=== PATIENT | female | born 1980 | race Caucasian/White ===

== ENCOUNTER 2016-03-29 16:31 | Inpatient (IN) | payer OTHER ==
[2016-03-29 16:46] VITALS: BMI 25.7
--- NOTE | 2016-03-29 17:59 | HP ---
CIWA Score - CIWA Score Nausea/Vomitin Muscle Tremors: 4-Moderate,w/Arms Extend Anxiety: 4-Mod. Anxious/Guarded Agitation: 4-Moderately Restless Paroxysmal Sweats: 3 Orientation: 0-Oriented Tacttile Disturbances: 2-Mild Itch/Numbness/Burn Auditory Disturbances: 0-None Visual Disturbances: 0-None Headache: 0-None Present CIWA-Ar Total Score: 20 Admission ROS S - HPI Chief Complaint: WITHDRAWAL SX. Allergies/Adverse Reactions: Allergies Allergy/AdvReac Type Severity Reaction Status Date / Time shellfish derived Allergy Verified 03/29/16 17:49 History of Present Illness: 35 Y/O WOMAN WITH A LONG HX. OF DRUG & ALCOHOL DEPENDENCE IS ADMITTED FOR DETOX.PT. HAS BEEN IN PREVIOUS DETOX,DENIES SIGNIFICANT SOBRIETY.SHE'S IN OTP 110MG OF METHADONE. Exam Limitations: No Limitations - Ebola screening Have you traveled outside of the country in the last 21 days: No Have you had contact with anyone from an Ebola affected area: No Have you been sick,other than usual withdrawal symptoms: No Do you have a fever: No - Review of Systems Constitutional: Diaphoresis EENT: reports: No Symptoms Reported Respiratory: reports: No Symptoms reported Cardiac: reports: No Symptoms Reported GI: reports: Abdominal cramping : reports: No Symptoms Reported Musculoskeletal: reports: Back Pain, Joint Pain Integumentary: reports: Sweating Neuro: reports: Seizure (HEAD TRAUMA,MEDS D/C BECAUSE NO SEIZURES X 2 YRS.), Tingling, Tremors Endocrine: reports: No Symptoms Reported Hematology: reports: No Symptoms Reported Psychiatric: reports: No Sypmtoms Reported Other Systems: Reviewed and Negative Patient History - Patient Medical History Hx Anemia: No Hx Asthma: Yes Hx Chronic Obstructive Pulmonary Disease (COPD): No Hx Cancer: Yes (ABNORMAL PAP SMEAR S/P CRYOSURGERY) Hx Cardiac Disorders: No Hx Congestive Heart Failure: No Hx Hypertension: No Hx Hypercholesterolemia: Yes (WAS ON LIPITOR) Hx Pacemaker: No HX Cerebrovascular Accident: No Hx Seizures: Yes (LAST > 2 YRS. AGO) Hx Dementia: No Hx Diabetes: No Hx Gastrointestinal Disorders: Yes (DYSPEPSIA) Hx Liver Disease: Yes Hx Genitourinary Disorders: No Hx Sexually Transmitted Disorders: No Hx Renal Disease (ESRD): No Hx Thyroid Disease: No Hx Human Immunodeficiency Virus (HIV): No Hx Hepatitis C: Yes (TREATED WITH INTERFERON) Hx Depression: Yes Hx Suicide Attempt: No Hx Bipolar Disorder: Yes Hx Schizophrenia: No Other Medical History: PTSD - Patient Surgical History Past Surgical History: Yes Other Surgical History: RIGHT OOPHORECTOMY - PPD History Previous Implant?: Yes Documented Results: Negative w/o proof PPD to be Administered?: Yes - Reproductive History Patient is a Female of Child Bearing Age (11 -55 yrs old): Yes Last Menstrual Period: 03/26/16 Patient : No - Smoking Cessation Smoking history: Current every day smoker Aproximately how many cigarettes per day: 20 Hx Chewing Tobacco Use: No Initiated information on smoking cessation: Yes 'Breaking Loose' booklet given: 03/29/16 - Substance & Tx. History Hx Alcohol Use: Yes Hx Substance Use: Yes Substance Use Type: Alcohol, Cocaine Hx Substance Use Treatment: Yes (DETOX,OTP) - Substances Abused BEER Route: Oral Frequency: Daily Amount used: BEER 1-2(6PACKS) Age of first use: 7 Date of Last Use: 03/29/16 Cocaine Route: Injection Frequency: Daily Amount used: 6 BAGS Age of first use: 14 Date of Last Use: 03/29/16 Family Disease History - Family Disease History Family Disease History: Diabetes: Grandparent (HTN), Mother (OVARIAN,ALCOHOLIC) , Heart Disease: Grandparent, CA: Mother, Other: Father (ALCOHOLIC & DRUG), Sister (ALCOHOLIC) Admission Physical Exam BHS - Vital Signs Vital Signs: Vital Signs - 24 hr 03/29/16 16:43 Temperature 96.3 F L Pulse Rate 65 Respiratory 18 Rate Blood Pressure 116/72 - Physical General Appearance: Yes: Tremorous, Irritable, Sweating, Anxious HEENTM: Yes: Nasal Congestion, Rhinorrhea Respiratory: Yes: Chest Non-Tender, Lungs Clear, Normal Breath Sounds Neck: Yes: Supple Breast: Yes: Breast Exam Deferred Cardiology: Yes: Regular Rhythm, Regular Rate, S1, S2 Abdominal: Yes: Normal Bowel Sounds, Non Tender, Soft Genitourinary: Yes: Within Normal Limits Back: Yes: Within Normal Limits Musculoskeletal: Yes: Within Normal Limits Extremities: Yes: Tremors Neurological: Yes: Fully Oriented, Alert Integumentary: Yes: Diaphoresis Lymphatic: Yes: Within Normal Limits - Diagnostic (1) Alcohol dependence with uncomplicated withdrawal Current Visit: Yes Status: Acute (2) Opioid dependence on agonist therapy Current Visit: Yes Status: Acute (3) Asthma Current Visit: Yes Status: Acute Qualifiers: Asthma severity: mild intermittent Asthma complication type: uncomplicated Qualified Code(s): J45.20 - Mild intermittent asthma, uncomplicated Cleared for Admission BHS - Detox or Rehab [facility] Level of Care: Medically Managed Detox Regimen/Protocol: Librium S Breath Alcohol Content Breath Alcohol Content: 0 Urine Drug Screen - Results Drug Screen Negative: No Urine Drug Screen Results: LEONEL-Cocaine, OPI-Opiates, MTD-Methadone
[2016-03-29] MEDS ORDERED: hydrOXYzine PAMOATE 50 MG CAPSULE (FP) PO PRN (18:12)
[2016-03-29] MEDS ORDERED: NICOTINE POLACRILEX 2 MG GUM BC PRN (18:12)
[2016-03-29] MEDS ORDERED: chlordiazePOXIDE HCL 25 MG CAPSULE PO ONE (18:12)
[2016-03-29] MEDS ORDERED: IBUPROFEN 400 MG TABLET (FP) PO PRN (18:12)
[2016-03-29] MEDS ORDERED: guaiFENesin/D-METHORPHAN HB 10 ML UNIT-DOSE CUPS PO PRN (18:12)
[2016-03-29] MEDS ORDERED: MAG HYDROX/AL HYDROX/SIMETH 30 ML UNIT-DOSE CUP PO PRN (18:12)
[2016-03-29] MEDS ORDERED: LOPERAMIDE HCL 2 MG CAPSULE PO PRN (18:12)
[2016-03-29] MEDS ORDERED: diphenhydrAMINE HCL 50 MG CAPSULE PO PRN (18:12)
[2016-03-29] MEDS ORDERED: ACETAMINOPHEN 325 MG TABLET (FP) PO PRN (18:12)
[2016-03-29] MEDS ORDERED: P-EPHED 60MG/TRIPROLIDI 2.5MG TABLET PO PRN (18:12)
[2016-03-29] MEDS ORDERED: MENTHOL/PHENOL 1 EACH UD MM PRN (18:12)
[2016-03-29] MEDS ORDERED: MAGNESIUM CITRATE 300 ML BOTTLE PO PRN (18:12)
[2016-03-29] MEDS ORDERED: MAGNESIUM HYDROX 2400MG/30ML ORAL SUSPENSION 30 ML CUP PO PRN (18:12)
[2016-03-29] MEDS ORDERED: chlordiazePOXIDE HCL 25 MG CAPSULE PO PRN (18:12)
[2016-03-29] MEDS ORDERED: ALBUTEROL SO4 6.7 GM HFA INHALER IH PRN (18:14)
[2016-03-29] MEDS: NICOTINE 21 MG/24 HOURS TOPICAL PATCH TD SCH (20:29)
[2016-03-29] MEDS: THIAMINE HCL 100 MG TABLET (FP) PO SCH (22:07)
[2016-03-29] MEDS: chlordiazePOXIDE HCL 25 MG CAPSULE PO SCH (22:07)
[2016-03-30] MEDS ORDERED: METHADONE HCL 10 MG TABLET ONE (05:02)
[2016-03-30] MEDS ORDERED: METHADONE HCL 40 MG DISPERSABLE TABLET ONE (05:03)
[2016-03-30] MEDS: chlordiazePOXIDE HCL 25 MG CAPSULE PO SCH ×4 (05:26→22:15)
[2016-03-30] MEDS: METHADONE 80 MG, METHADONE 30 MG PO SCH (05:26)
[2016-03-30] MEDS ORDERED: METHADONE HCL 10 MG TABLET PO SCH (06:00)
[2016-03-30] MEDS ORDERED: INFLUENZA VACCINE 45 MCG/0.5 ML (MDV 16-17) IM ONE ×2 (06:00→12:00)
--- NOTE | 2016-03-30 09:59 | PN ---
S CIWA - CIWA Score Nausea/Vomitin Muscle Tremors: 3 Anxiety: 3 Agitation: 2 Paroxysmal Sweats: 1-Minimal Palms Moist Orientation: 0-Oriented Tacttile Disturbances: 1-Very Mild Itch/Numbness Auditory Disturbances: 1-Very Mild Visual Disturbances: 1-Very Mild Sensitivity Headache: 2-Mild CIWA-Ar Total Score: 17 BHS Progress Note (SOAP) Subjective: ALERT,IRRITABLE,ANXIOUS,INTERRUPTED SLEEP,TREMOR Objective: 03/30/16 09:57 Vital Signs Temperature 98.1 F 03/30/16 06:00 Pulse Rate 54 L 03/30/16 06:00 Respiratory Rate 18 03/30/16 06:00 Blood Pressure 110/59 03/30/16 06:00 O2 Sat by Pulse Oximetry (%) EKG NSR 60/MIN LABS PENDING Assessment: 03/30/16 09:58 WITHDRAWAL SYMPTOM Plan: CONTINUE DETOX
[2016-03-30] MEDS: PRENATAL VITAMINS W/ FOLIC ACID TABLET (FP) PO SCH (10:16)
[2016-03-30] MEDS: NICOTINE 21 MG/24 HOURS TOPICAL PATCH TD SCH (10:16)
[2016-03-30 10:36] LABS: MCH 25.9 pg (25.7-33.7); MCHC 32.6 g/dl (32.0-36.0); MEAN CELL VOLUME 79.7 fl (80-96); MEAN PLT VOLUME 9.5 fl (7.5-11.1); PLATELET COUNT 180 K/MM3 (134-434); RDW 15.5 % (11.6-15.6); WHITE BLOOD COUNT 5.9 K/mm3 (4.0-10.0)
[2016-03-30 11:13] LABS: ALK PHOS 56 U/L (45-117); ANION GAP 7 (8-16); BILIRUBIN,TOTAL 0.2 mg/dL (0.2-1.0); CALCIUM 8.8 mg/dL (8.5-10.1); CO2 29 mmol/L (21-32); CREATININE 0.7 mg/dL (0.55-1.02); GLUCOSE,RANDOM 105 mg/dL (74-106); SGOT/AST 11 U/L (15-37); SGPT/ALT 20 U/L (12-78); TOT PROT 5.9 g/dl (6.4-8.2)
[2016-03-30] MEDS ORDERED: PNEUMOC 13-VAL CONJ-DIP CRM/PF 0.5 ML DISP.SYRIN IM ONE (12:00)
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
[2016-03-30] MEDS ORDERED: QUEtiapine FUMARATE 100 MG TABLET (FP) PO SCH (22:00)
[2016-03-30] MEDS ORDERED: DIVALPROEX SODIUM 125 MG TABLET E.C. (FP) PO SCH (22:00)
[2016-03-30] MEDS: THIAMINE HCL 100 MG TABLET (FP) PO SCH (22:15)
[2016-03-31] MEDS ORDERED: METHADONE HCL 40 MG DISPERSABLE TABLET ONE ×2 (04:10→18:00)
[2016-03-31] MEDS ORDERED: METHADONE HCL 10 MG TABLET ONE ×2 (04:10→17:59)
[2016-03-31] MEDS: chlordiazePOXIDE HCL 25 MG CAPSULE PO SCH ×3 (06:26→18:07)
[2016-03-31] MEDS: METHADONE 80 MG, METHADONE 30 MG PO SCH (10:00)
[2016-03-31] MEDS ORDERED: SERTRALINE HCL 50 MG TABLET (FP) PO SCH (10:00)
--- NOTE | 2016-03-31 10:43 | PN ---
[facility] CIWA - CIWA Score Nausea/Vomitin-Mild Nausea/No Vomiting Muscle Tremors: 2 Anxiety: 3 Agitation: 3 Paroxysmal Sweats: 3 Orientation: 0-Oriented Tacttile Disturbances: 2-Mild Itch/Numbness/Burn Auditory Disturbances: 0-None Visual Disturbances: 0-None Headache: 1-Very Mild CIWA-Ar Total Score: 15 S Progress Note (SOAP) Subjective: INTERRUPTED SLEEP, SWEATS ,ANXIETY, Objective: 03/31/16 10:41 Vital Signs Temperature 98.3 F 03/31/16 10:27 Pulse Rate 82 03/31/16 10:27 Respiratory Rate 16 03/31/16 10:27 Blood Pressure 132/78 03/31/16 10:27 O2 Sat by Pulse Oximetry (%) Laboratory Tests 03/30/16 03/30/16 03/30/16 07:15 07:15 07:15 WBC 5.9 RBC 4.35 Hgb 11.3 Hct 34.6 MCV 79.7 L MCHC 32.6 RDW 15.5 Plt Count 180 MPV 9.5 Sodium 143 Potassium 4.0 Chloride 107 Carbon Dioxide 29 Anion Gap 7 L BUN 13 Creatinine 0.7 Creat Clearance w eGFR > 60 Random Glucose 105 Calcium 8.8 Total Bilirubin 0.2 AST 11 L ALT 20 Alkaline Phosphatase 56 Total Protein 5.9 L Albumin 3.0 L RPR Titer Nonreactive PT AOX3 IN NAD AMBULATING 03/31/16 10:43 Assessment: 03/31/16 10:42 WITHDRAWL SX'S Plan: CONT. DETOX INCREASE FLUIDS REASSURANCE
[2016-03-31] MEDS: PRENATAL VITAMINS W/ FOLIC ACID TABLET (FP) PO SCH (11:00)
[2016-03-31] MEDS: NICOTINE 21 MG/24 HOURS TOPICAL PATCH TD SCH (11:00)
[2016-03-31 11:43] LABS: HIV 1 & 2 AB NEGATIVE; HIV 1 AGp24 NEGATIVE
[2016-03-31] MEDS ORDERED: METHADONE HCL 10 MG TABLET PO ONE (17:22)
--- NOTE | 2016-03-31 17:31 | PN ---
[facility] Progress Note Note: pt has been sedated through out the day. methadone and librium have been not given . Pt is now requesting meds . Vital Signs Temp 97.2 F L 03/31/16 14:48 Pulse 61 03/31/16 14:48 Resp 18 03/31/16 14:48 BP 103/66 03/31/16 14:48 Pulse Ox vs now 113/73, p 65/m , r16/m pt is more alert aox3, more responsive. pupil nl sized not dilated pt not diaphoeretic plan pt will be medicated with methadone 60mg instead of usual 110mg will cont. to monitor pt's mental status and vital signs will d/c seroquel encourage hydration
[2016-03-31] MEDS ORDERED: METHADONE 40 MG, METHADONE 20 MG PO ONE (18:00)
[2016-03-31 18:06] VITALS: BP 113/73; PULSE 65; TEMP 98.1
[2016-03-31] MEDS ORDERED: chlordiazePOXIDE 5 MG CAPSULE PO SCH (23:00)
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
[2016-04-01] MEDS ORDERED: chlordiazePOXIDE HCL 10 MG CAPSULE PO SCH (23:00)
== END 2016-03-31 18:40 | disposition left against medical advice (07) | DRG 770 ==
LOC: YASAS 16:31 → Y6N 18:14
PROVIDERS: ADMIT Internal Medicine; ATTEND Internal Medicine
PROC: HZ2ZZZZ Detoxification Services for Substance Abuse Treatment (ICD-10-PCS; principal; 2016-03-29)
DX: F10.230 Alcohol dependence with withdrawal, uncomplicated (principal); F11.20 Opioid dependence, uncomplicated; F14.20 Cocaine dependence, uncomplicated; F17.210 Nicotine dependence, cigarettes, uncomplicated; F43.10 Post-traumatic stress disorder, unspecified; F19.24 Other psychoactive substance dependence with psychoactive substance-induced mood disorder; J45.20 Mild intermittent asthma, uncomplicated; B18.2 Chronic viral hepatitis C; K21.9 Gastro-esophageal reflux disease without esophagitis; Z85.43 Personal history of malignant neoplasm of ovary; E78.00 Pure hypercholesterolemia, unspecified; M54.5 Low back pain; Z86.69 Personal history of other diseases of the nervous system and sense organs
CPT/HCPCS: 36415; 80053; 80164; 85027; 86593; 87389; 90670; 93005; 93010